=== PATIENT | female | born 1980 | race Caucasian/White ===

== ENCOUNTER → 2016-12-18 | Outpatient (CLI) | payer BC ==
[~2016-12-18] MED LIST: PRENTAB26 PO
== END | disposition home or self-care (01) ==
LOC: C.PAPS 12:11
PROVIDERS: ATTEND Obstetrics & Gynecology
DX: Z01.419 Encounter for gynecological examination (general) (routine) without abnormal findings (principal)

== ENCOUNTER → 2017-05-03 | Outpatient (CLI) | payer BC, OTHER ==
[2017-05-07 09:30] LABS: BEEF CLASS 0; BEEF IGE <0.10 KU/L; CHOCOLATE CLASS 0; CHOCOLATE IGE <0.10 KU/L; CLAM CLASS 0; CLAM IGE <0.10 KU/L; CORN CLASS 0; CORN IGE <0.10 KU/L; CRAB CLASS 0; CRAB IGE <0.10 KU/L; EGG MIX CLASS 0; EGG MIX IGE <0.10 KU/L; LOBSTER CLASS 0; LOBSTER IGE <0.10 KU/L; PEANUT IGE <0.10 KU/L; PORK CLASS 0; PORK IGE <0.10 KU/L; SHRIMP CLASS 0; SOY CLASS 0; SOY IGE <0.10 KU/L; WHEAT CLASS 0; WHEAT IGE <0.10 KU/L
== END | disposition home or self-care (01) ==
LOC: C.LAB1850 16:29
PROVIDERS: ATTEND Physician Assistant Medical
DX: T78.40XA Allergy, unspecified, initial encounter (principal); X58.XXXA Exposure to other specified factors, initial encounter